=== PATIENT | male | born 1980 | race Caucasian/White ===

== ENCOUNTER 2016-08-15 16:32 | Emergency (ER) | payer OTHER ==
[~2016-08-15 16:32] MED LIST: DIFLUCAN PO; EFFEXOR PO; FISH OIL 1,0001 CAP PO; KEFLEX PO; LISINOPRIL5 MG PO; MULTI-DAY1 TAB PO; NATURAL VITA400 UNI3 PO; NORCO 5/325 TAB1 TAB PO; PRISTIQ50 MG PO
[2016-08-15 16:50] LABS: INFLUENZA A NEG (NEG); INFLUENZA B NEG (NEG)
== END 2016-08-15 17:31 | disposition home or self-care (01) ==
LOC: SED 16:32
PROVIDERS: Nurse Practitioner Family
DX: R05 Cough (principal); R51 Headache; I10 Essential (primary) hypertension; Z79.899 Other long term (current) drug therapy
CPT/HCPCS: 87804; 99283